=== PATIENT | male | born 1955 | race Caucasian/White ===

== ENCOUNTER 2025-04-21 18:54 | Emergency (ER) | payer OTHER, SELFPAY ==
[2025-04-21 19:06] VITALS: BP 147/89
[2025-04-22 00:26] VITALS: BP 141/97
[2025-04-22] MEDS: ADACEL 0.5 ML IM (00:45)
--- NOTE | 2025-04-22 00:54 | ED.SKININJ ---
HPI-Injury
General
Chief Complaint: Skin Surface Trauma
Time Seen by Provider: 04/21/25 23:36
History of Present Illness-Injury
Initial Injury comments:
69-year-old male presenting for head injury. Prior to arrival he was trying to fix his daughters garage door and a piece of metal struck his right forehead. He arrives with laceration. Denies any blood thinners or loss of consciousness. Denies
any additional injuries. Tetanus status is unknown. Denies any additional acute medical complaint
Phy Exam
Physical Exam
Physical Exam:
General: Well-appearing, no clinical signs of dehydration
Head: 6 cm linear laceration to the right forehead
HEENT: protecting airway
Neck: appears supple
CV: Normal heart rate
Resp: No accessory muscle use, no increased work of breathing, lungs clear to auscultation bilaterally
Abd: no distension
Extremities: No deformities, no swelling
Neuro: alert, no focal neurologic deficit
: deferred
Rectal: deferred
Psych: Normal affect
Skin: Intact
Course
Orders/Labs/Results
Orders:
Orders
04/22/25 00:29
Tetanus/Diphth/Acelpertussis [Adacel] 0.5 ml IM .ONCE ONE
Vital Signs
Initial and Last Documented VS:
Initial Vital Signs
Temp Pulse Resp BP Pulse Ox
98.4 F 88 18 147/89 96
04/21/25 19:06 04/21/25 19:06 04/21/25 19:06 04/21/25 19:06 04/21/25 19:06
Last Documented Vital Signs
Temp Pulse Resp BP Pulse Ox
98.4 F 69 14 141/97 97
04/21/25 19:06 04/22/25 00:26 04/22/25 00:26 04/22/25 00:26 04/22/25 00:26
Procedures
Laceration Closure
Right Forehead:
Status of Wound: clean
Size of Wound in cm: 6
Preparation: cleaned with saline
Anesthesia: 1% Lidocaine
Type of Closure: single layer closure
Skin Closure Material: 5-0 prolene
Number of sutures: 7
MDM/Problems Addressed
MDM/Problems Addressed:
69-year-old male presenting to the emergency department for laceration to the right side of the head. Vital sign significant for mild hypertension.
On exam patient is resting comfortably, no acute distress. Linear laceration to the right forehead without significant hematoma or swelling. Patient notes that the piece of metal hit him in the head, no significant force with the injury. No loss
of consciousness or thinners. No indication for advanced head imaging. Laceration repaired. Wound was irrigated. Will update tetanus. Please see procedure note. Plan for discharge. Advised outpatient follow-up for suture removal in about 7
days. Return precautions discussed.
*Pulse Oximetry
SaO2: 97
Oxygen Mode of Delivery: Room air
Patient hypoxic: no
*Critical Care Note
Total Time (30-74mins, 75-104mins- exclusive of procedures): Not Applicable
ED Attending Note
-
Portions of this chart may have been created with voice recognition software.� Occasional wrong word or��sound alike� substitutions may have occurred due to the inherent limitations of voice recognition software.
Discharge Plan
Departure
Patient Disposition: Home (Routine Discharge)
Date of Disposition: 04/22/25
Time of Disposition: 01:01
Patient with high blood pressure during this ER visit?: Yes
Condition: Good
Discharge Problem:
Laceration of head
Instructions: Laceration Repair With Stitches (DC)
Prescriptions:
No Action
valsartan 320 mg Tablet
320 mg PO DAILY
Referrals:
Lydia Smiley PA [Family Provider, Family Practice]
Activity Restrictions/Additional Instructions:
You were seen in the emergency department for a laceration to your head
You had 7 sutures placed. You will need to follow-up with your doctor for removal in about 7 days.
Return to the emergency department for any worsening of your symptoms, or any development of chest pain, difficulty breathing, abdominal pain with persistent vomiting and inability to tolerate food or liquid by mouth (concern for dehydration),
weakness, headache or confusion, fever greater than 100.4, or any additional symptoms that are concerning to you.
Thank you for choosing [facility].
Interventions
Interventions:
*Risk Screen - Suicide Last Done: 04/21/25 19:06
*General Assessment Last Done: 04/21/25 19:06
*Neglect/Abuse Screening Last Done: 04/21/25 19:06
*ED- Fall Risk Assessment Last Done: 04/21/25 19:06
*ED COVID-19 Vaccine History Last Done: 04/21/25 19:06
ED-Skin Assessment Last Done: 04/21/25 23:17
Discharge Date and Time
Print Language: MONGOLIAN
[2025-04-22 01:14] VITALS: BP 141/97
== END 2025-04-22 01:15 | disposition home or self-care (01) ==
LOC: EMR 18:54
PROVIDERS: EMERGENCY PHYSICIAN Student in an Organized Health Care Education/Training Program; FAMILY PHYSICIAN Physician Assistant Medical
DX: S01.81XA Laceration without foreign body of other part of head, initial encounter (principal); W22.8XXA Striking against or struck by other objects, initial encounter; Z23 Encounter for immunization
CPT/HCPCS: 90471; 12014; 99282; 90715